=== PATIENT | female | born 1940 | race Caucasian/White ===

== ENCOUNTER → 2021-02-07 12:17 | Outpatient (BNVA) | payer MEDICARE, SELFPAY | PROVIDERS: Family Provider Family Medicine; PCP Family Medicine; Visit Provider Internal Medicine Cardiovascular Disease | DX: R06.02 Shortness of breath (principal); Z95.0 Presence of cardiac pacemaker; R07.9 Chest pain, unspecified; I50.33 Acute on chronic diastolic (congestive) heart failure; Z79.899 Other long term (current) drug therapy; N18.9 Chronic kidney disease, unspecified; M79.89 Other specified soft tissue disorders; I48.0 Paroxysmal atrial fibrillation; E78.2 Mixed hyperlipidemia | CPT/HCPCS: 80048; 83880; 84443 ==

== ENCOUNTER → 2021-12-22 12:18 | Outpatient (BNVA) | payer MEDICARE, SELFPAY | PROVIDERS: Family Provider Family Medicine; PCP Family Medicine; Visit Provider Internal Medicine Cardiovascular Disease | DX: I48.0 Paroxysmal atrial fibrillation (principal); Z95.0 Presence of cardiac pacemaker; I10 Essential (primary) hypertension; E78.5 Hyperlipidemia, unspecified; Z79.82 Long term (current) use of aspirin | CPT/HCPCS: 99213; 99214 ==

== ENCOUNTER → 2022-01-20 11:05 | Outpatient (BNVA) | payer MEDICARE, SELFPAY | PROVIDERS: Family Provider Family Medicine; PCP Family Medicine; Visit Provider Internal Medicine Cardiovascular Disease | DX: Z45.010 Encounter for checking and testing of cardiac pacemaker pulse generator [battery] (principal) | CPT/HCPCS: 93280 ==

== ENCOUNTER → 2022-06-22 10:24 | Outpatient (BNVA) | payer MEDICARE, SELFPAY | PROVIDERS: Family Provider Family Medicine; PCP Family Medicine; Visit Provider Internal Medicine Cardiovascular Disease | DX: I48.0 Paroxysmal atrial fibrillation (principal); Z79.899 Other long term (current) drug therapy; Z95.0 Presence of cardiac pacemaker; E78.2 Mixed hyperlipidemia; I10 Essential (primary) hypertension | CPT/HCPCS: 93005; 99214 ==

== ENCOUNTER → 2022-09-22 11:00 | Outpatient (BNVA) | payer MEDICARE, SELFPAY | PROVIDERS: Family Provider Family Medicine; PCP Family Medicine; Visit Provider Internal Medicine Cardiovascular Disease | DX: Z45.010 Encounter for checking and testing of cardiac pacemaker pulse generator [battery] (principal) | CPT/HCPCS: 93280 ==

== ENCOUNTER → 2023-01-04 10:09 | Outpatient (BNVA) | payer MEDICARE, SELFPAY | PROVIDERS: Family Provider Family Medicine; PCP Family Medicine; Visit Provider Internal Medicine Cardiovascular Disease | DX: I48.0 Paroxysmal atrial fibrillation (principal); Z79.899 Other long term (current) drug therapy; Z95.0 Presence of cardiac pacemaker; E78.2 Mixed hyperlipidemia; I10 Essential (primary) hypertension | CPT/HCPCS: 99214 ==

== ENCOUNTER → 2023-02-01 14:51 | Outpatient (BNVA) | payer MEDICARE, SELFPAY | PROVIDERS: Family Provider Family Medicine; PCP Family Medicine; Visit Provider Thoracic Surgery (Cardiothoracic Vascular Surgery) | DX: Z95.0 Presence of cardiac pacemaker (principal) | CPT/HCPCS: 99203 ==

== ENCOUNTER → 2023-03-08 09:17 | Outpatient (BNVA) | payer MEDICARE, SELFPAY | PROVIDERS: Family Provider Family Medicine; PCP Family Medicine; Visit Provider Thoracic Surgery (Cardiothoracic Vascular Surgery) | DX: Z95.0 Presence of cardiac pacemaker (principal) | CPT/HCPCS: 99213 ==

== ENCOUNTER 2023-03-13 07:13 | Day surgery (SDC) | payer MEDICARE, SELFPAY ==
--- NOTE | 2023-03-12 11:01 | ECG_ITS ---
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 Measurements Intervals [place] Rate: 61 P: 49 [place]: 207 QRS: -26 QRSD: 102 T: 44 QT: 442 QTc: 446 Interpretive Statements ELECTRONIC ATRIAL PACEMAKER BORDERLINE LEFT AXIS DEVIATION [QRS AXIS < -20] LOW QRS VOLTAGE IN PRECORDIAL LEADS [QRS DEFLECTION < 1.0 mV IN CHEST LEADS] PATTERN CONSISTENT WITH PULMONARY DISEASE No previous ECG available for comparison Electronically Signed On 03-12-2023 21:50:08 CDT by Shahana Jade M.D. [id number]
[2023-03-12 11:06] LABS: Basophils % 0.6 %; Eosinophils # 0.1 10^3/uL (0.0-0.8); Eosinophils % 1.1 %; Hematocrit 40.8 % (37.0-47.0); Hemoglobin 12.4 g/dL (11.5-15.3); Lymphocytes # 2.7 10^3/uL (0.8-4.8); Lymphocytes % 41.6 %; Mean Corpuscular HGB Conc 30.4 g/dL (30.0-36.0); Mean Corpuscular Hemoglobin 27.3 pg (28.0-34.0); Mean Corpuscular Volume 89.9 fl (81-99); Monocytes # 0.5 10^3/uL (0.2-0.9); Monocytes % 7.8 %; Neutrophils # 3.18 10^3/uL (1.8-7.7); Neutrophils % 48.4 %; Nucleated Red Blood Cells % 0 %; Platelet Count 334 10^3/cmm (130-400); Red Blood Count 4.54 10^6/uL (4.1-5.3); Red Cell Distribution Width 14.2 % (12.1-15.1); White Blood Count 6.6 10^3/uL (4.0-10.0)
[2023-03-12 11:15] LABS: Add Urine Microscopic? YES; Bilirubin Urine Neg (Negative); Blood Urine Neg (Negative); Glucose Urine UA Norm (Normal); Ketones Urine Negative (Negative); Leukocyte Esterase Urine Trace (Negative); Nitrate Urine Negative (Negative); Protein Urine Neg (Negative); Urine Appearance Clear (CLEAR); Urine Color Yellow (Yellow); Urobilinogen Urine Norm (Negative); pH Urine 6 (5-7)
[2023-03-12 11:16] LABS: Add Urine Culture? No; Bacteria Urine TRACE /hpf
[2023-03-12 11:23] LABS: Blood Urea Nitrogen 16 mg/dL (8-23); Calcium 9.4 mg/dL (8.5-10.5); Carbon Dioxide 26 mmol/L (22-29); Chloride 103 mmol/L (98-107); Glucose 112 mg/dL (65-115); Osmolality Calculated 294 mOsm/kg (285-295); Sodium 141 mmol/L (136-145)
--- NOTE | 2023-03-12 11:33 | P.ANESASSM_ITS ---
Pre-Anesthetic Assessment Height/Weight: Height 1.57 m Operation Date: 03/13/23 09:10 Proposed Procedures p pacemaker gen change possible lead revisio [id number],I48.0(Not Applicable) - Valentin Love MD Familial anesthetic complications: none Was Beta Aston taken within 24 hours: N/A Was Clonidine taken within 24 hours: N/A Social No alcohol and No tobacco Exam alert, oriented x 3, clear to auscultation bilaterally and regular rate & rhythm Airway Submandibular: within normal limits Cervical ROM: within normal limits Mallampati: Class II Dentition: full CV/HEM Atrial Fibrillation, Arrythmia and Hypertension Pacemaker GI Gastroesophageal Reflux Disease Metabolic Diabetes Mellitus and Hyperlipidemia Anesthetic Plan ASA status: 3 Anesthesia: MAC Medications/Allergies Home Medications Medication Instructions Recorded Confirmed Last Taken Type esomeprazole magnesium 20 mg 20 mg PO DAILY 02/05/20 03/12/23 03/11/23 History capsule,delayed release (Nexium) ezetimibe 10 mg tablet 10 mg PO DAILY 02/05/20 03/12/23 03/11/23 History sotalol 80 mg tablet 80 mg PO BID 02/05/20 03/12/23 03/11/23 History furosemide 20 mg tablet (Lasix) 20 mg PO DAILY PRN edema 30 days 02/07/21 03/12/23 Unknown Rx #30 tabs aspirin 81 mg tablet,delayed 81 mg PO Q2D 06/22/21 03/12/23 Unknown History release (Adult Low Dose Aspirin) amlodipine 5 mg tablet 5 mg PO DAILY #90 tabs 04/03/22 03/12/23 03/11/23 Rx losartan 25 mg tablet 50 mg PO DAILY #180 tabs 01/31/23 03/12/23 03/11/23 Rx potassium chloride 8 mEq 8 meq PO DAILY PRN Edema 02/01/23 03/12/23 Unknown History tablet,extended release Allergies Allergy/AdvReac Type Severity Reaction Status Date / Time iodine Allergy Unknown unknown Verified 03/08/23 09:26 [facility] Anesthesia Medical History Atrial fibrillation Patient he is known to have easy bruising. So she is not on any long-term oral anticoagulation Diabetes Diverticulitis High risk medication use Hyperlipidemia Hypertension Pacemaker Surgical History H/O: hysterectomy History of back surgery Family History Mother Cancer Diabetes Family/Other Chronic kidney disease (CKD) Daughter Dementia Denies family history of CAD (coronary artery disease) Clotting disorder Suicide Anesthesia complication Bleeding disorder Lung disease Stroke Social History Smoking and tobacco status: never smoked Alcohol intake: never Substance/Drug Use: never Data Anesthesia 03/12/23 10:48 03/12/23 10:48 Short CBC 03/12/23 Range/Units 10:48 WBC 6.6 (4.0-10.0) 10^3/uL Hgb 12.4 (11.5-15.3) g/dL Hct 40.8 (37.0-47.0) % MCV 89.9 (81-99) fl Plt Count 334 (130-400) 10^3/cmm Neut % (Auto) 48.4 % Neut # (Auto) 3.18 (1.8-7.7) 10^3/uL BMP 03/12/23 10:48 Sodium 141 Potassium 4.0 Chloride 103 Carbon Dioxide 26 BUN 16 Creatinine 1.0 H Glucose 112 Calcium 9.4 Urine 03/12/23 Range/Units 10:32 Urine Color Yellow (Yellow) Urine Appearance Clear (CLEAR) Urine pH 6 (5-7) Ur Specific [place] 1.010 (1.005-1.030) Urine Protein Neg (Negative) Urine Glucose (UA) Norm (Normal) Urine Ketones Negative (Negative) Urine Nitrate Negative (Negative) Urine Bilirubin Neg (Negative) Ur Leukocyte Esterase Trace H (Negative) Urine RBC None (0-2) /hpf Urine WBC 5-10 H (0-5) /hpf Cardiac Studies: No Data to Display
[2023-03-13] VITALS (8 sets, daily range): BP systolic 108–167; BP diastolic 52–89; PULSE 60–69; RESP 10–18; TEMP 36.4–36.6; O2SAT 91–100; BMI 23.8
[2023-03-13] MEDS: sodium chloride 0.9% 1,000 ML 30 ML IV (07:41)
--- NOTE | 2023-03-13 08:34 | P.ANESUD_ITS ---
Pre-Anesthetic Update Pre-Anesthetic Assessment: Date of Surgery/Procedure: 03/13/23 Preop Alana gnosis: Pacemaker generator end of service Proposed Procedure: Operation Date: 03/13/23 09:10 Proposed Procedures p pacemaker gen change possible lead revisio [id number],I48.0(Not Applicable) - Valentin Love MD Any changes to Pre-Anesthetic Assessment?: No Last Intake: Intake Last Liquid Date 03/12/23 Last Liquid Time 23:00 Last Solid Date 03/12/23 Last Solid Time 22:00 Labs Last 48hrs: Short CBC 03/12/23 Range/Units 10:48 WBC 6.6 (4.0-10.0) 10^3/ uL Hgb 12.4 (11.5-15.3) g/dL Hct 40.8 (37.0-47.0) % MCV 89.9 (81-99) fl Plt Count 334 (130-400) 10^3/c mm Neut % (Auto) 48.4 % Neut # (Auto) 3.18 (1.8-7.7) 10^3/u L BMP 03/12/23 10:48 Sodium 141 Potassium 4.0 Chloride 103 Carbon Dioxide 26 BUN 16 Creatinine 1.0 H Glucose 112 Calcium 9.4 Urine 03/12/23 Range/Units 10:32 Urine Color Yellow (Yellow) Urine Appearance Clear (CLEAR) Urine pH 6 (5-7) Ur Specific Gravit y 1.010 (1.005-1.030) Urine Protein Neg (Negative) Urine Glucose (UA) Norm (Normal) Urine Ketones Negative (Negative) Urine Nitrate Negative (Negative) Urine Bilirubin Neg (Negative) Ur Leukocyte Violetta ase Trace H (Negative) Urine RBC None (0-2) /hpf Urine WBC 5-10 H (0-5) /hpf Vitals: Temperature 97.5 F L 03/13/23 07:28 Temperature Source Temporal Artery S can 03/13/23 07:28 Pulse Rate 61 03/13/23 07:28 Respiratory Rate 16 03/13/23 07:28 Blood Pressure 167/83 03/13/23 07:28 Blood Pressure Thalia n 111 03/13/23 07:28 Pulse Oximetry 97 03/13/23 07:28 Oxygen Delivery Me thod Room Air 03/13/23 07:30 Exam: Pre-Anes Outpt Exam: alert, oriented x 3 and clear to auscultation bila terally Cardiac Studies: No Data to Display
--- NOTE | 2023-03-13 08:38 | W.PM.OPSUD ---
Surgery/Procedure H&P Update DATE OF PROCEDURE: March 13, 2023 DATE H&P PERFORMED: 03/08/23 H&P UPDATE INFORMATION: I have reviewed H&P completed within last 30 days, I have examined patient prior to procedure and No changes to prior documentation PREOP DIAGNOSIS: Pacemaker generator end of service PLANNED PROCEDURE: Operation Date: 03/13/23 09:10 Proposed Procedures p pacemaker gen change possible lead revisio [id number],I48.0(Not Applicable) - Valentin Love MD
[2023-03-13] MEDS: ceFAZolin 2,000 MG in sodium chloride 0.9% (plus) 50 ML 100 MG IV (09:02)
[2023-03-13] MEDS: ceFAZolin 1,000 mg SDV 1000 MG IRRIGATION (09:25)
[2023-03-13] MEDS: lidocaine 2% INJ 20 mL INJECTION (09:25)
--- NOTE | 2023-03-13 10:12 | P.OP_ITS ---
Operative Report Date of procedure: March 13, 2023 Pre-op diagnosis: Preop Diagnosis Pacemaker generator end of service Post-op diagnosis: same Procedure done: Pacemaker generator exchange Implants: Medtronic pacing generator Specimens removed/disposition: [employer] generator Pathology: none sent Surgeon: Valentin Love Anesthesia: MAC and Local Estimated blood loss (mL): 5 Complications: None Condition: stable Disposition: same day Brief History: Ms. Montgomery is a very pleasant 83-year-old female with current dual-lead pacemaker at end of service. Patient generator replacement has been recommended by our cardiology colleagues. Details of risk of the procedure were carefully and frankly discussed. Appropriate consents have been reviewed and signed. Procedure: Ms. Montgomery was appropriately positioned and sterilely prepped and draped. Appropriate timeout was completed and confirmed. Ms. Montgomery IV consicious sedation was given with anesthesia monitoring. 1% lidocaine was infiltrated through the prior insertion incision site. # 15 scalpel blade was used to incise the skin down to subcutaneous layer. Subsequently, using sharp and blunt dissection the pseudocapsule to the old generator was reached and opened with a scalpel blade. This area was then enhanced utilizing Metzenbaum scissors with care taken not to injure the pacing leads. Once the pocket was adequate opened, hemostats were utilized to deliver the old generator. Set screws were released and the leads were removed and inserted properly into the new generator with set screws then secured. The old generator was removed from the field. The incision was irrigated with antibiotic solution. Hemostasis was confirmed. The new generator was placed back into the old subcutaneous pocket. The wound was then closed in 2 layers of 3-0 Vicryl suture. Skin was closed in a subcuticular manner with 4-0 undyed Vicryl suture. A 2 layer pressure dressing was then applied. The entire system was interrogated and appropriate parameters obtained. Ms. Montgomery tolerated procedure well and was taken to the recovery room in stable condition. I did vocational rehabilitation counselor with the family at the completion of the procedure. Medtronic generator model # [id number] serial # [id number] Right atrial lead had an amplitude of 1.5 mV with an impedance of 361 ohms and a capture threshold of 0.5 V. Biventricular lead had an amplitude of 7.9 mV with an impedance of 437 ohms and a capture threshold of 0.75 V. Pacing mode: AAIR/DDDR Lower rate equals 60 Upper rate equals 130
--- NOTE | 2023-03-13 13:41 | ANE.PACU2 ---
Inpatient post-anesthesia follow up: Airway intact: Yes Vital signs: Temperature 97.8 F Pulse Rate 61 Respiratory Rate 18 Blood Pressure 151/89 Pulse Oximetry 94 Oxygen Delivery Me thod Room Air Oxygen Flow Rate 6 Fraction of Inspir ed Oxygen Hydration adequate: Yes Nausea and vomiting: No Pain level: 2 Mental status: Baseline
== END 2023-03-13 11:25 | disposition home or self-care (01) ==
PROVIDERS: PCP Family Medicine; Visit Provider Thoracic Surgery (Cardiothoracic Vascular Surgery)
PROC: 0JPT0PZ Removal of Cardiac Rhythm Related Device from Trunk Subcutaneous Tissue and Fascia, Open Approach (ICD-10-PCS; CPT 33228; principal; 2023-03-13 09:00)
DX: I10 Essential (primary) hypertension; K21.9 Gastro-esophageal reflux disease without esophagitis; E11.9 Type 2 diabetes mellitus without complications; E78.5 Hyperlipidemia, unspecified; Z79.82 Long term (current) use of aspirin; I48.91 Unspecified atrial fibrillation
CPT/HCPCS: 33228; 36415; 80048; 81001; 85025; 93005; C1786; J0690; J2704; J3010; J3490; J7030

== ENCOUNTER → 2023-03-19 10:17 | Outpatient (BNVA) | payer MEDICARE, SELFPAY | PROVIDERS: PCP Family Medicine; Visit Provider Nurse Practitioner Family | DX: Z95.0 Presence of cardiac pacemaker (principal) | CPT/HCPCS: 93288; 99213 ==

== ENCOUNTER 2023-09-07 10:04 | Emergency (ER) | payer MEDICARE, SELFPAY ==
--- NOTE | 2023-09-07 10:05 | ECG_ITS ---
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 Measurements Intervals [place] Rate: 72 P: 68 [place]: 207 QRS: -55 QRSD: 99 T: 14 QT: 405 QTc: 446 Interpretive Statements ELECTRONIC ATRIAL PACEMAKER LOW QRS VOLTAGE IN PRECORDIAL LEADS [QRS DEFLECTION < 1.0 mV IN CHEST LEADS] LEFT ANTERIOR FASCICULAR BLOCK [QRS AXIS <= -45, QR IN I, RS IN II] POSSIBLE ANTERIOR MYOCARDIAL INFARCTION , PROBABLY OLD [30 ms Q WAVE IN V3/V4, OR R < 0.2 mV IN V4] Compared to ECG 03/12/2023 11:01:19 Left anterior fascicular block now present Myocardial infarct finding now present Electronically Signed On 09-07-2023 13:43:53 ANALYTICS CONSULTANT by Shahana Jade M.D. [id number]
--- NOTE | 2023-09-07 10:05 | XRR_ITS ---
PROCEDURE INFORMATION: Exam: XR Chest Exam date and time: 09/07/2023 10:36 AM Age: 83 years old Clinical indication: Pain; Angina pectoris; Prior surgery; Surgery date: 6+ months; Surgery type: Pacemaker; Additional info: Cp TECHNIQUE: Imaging protocol: Radiologic exam of the chest. Views: 1 view. COMPARISON: No relevant prior studies available. FINDINGS: Lungs: No consolidation. Tiny scattered dense nodular opacities favored calcified granulomas. Pleural spaces: No pleural effusion. No pneumothorax. Heart/Mediastinum: No cardiomegaly. Left chest cardiac device. Bones/joints: No acute findings. XR/XR chest 1V portable [id number] IMPRESSION: No acute chest findings.
[2023-09-07 10:14] VITALS: BP 146/83; PULSE 81; RESP 14; TEMP 36.6; O2SAT 96
--- NOTE | 2023-09-07 10:46 | ED_ITS ---
HPI - Chest Pain 2 General: Chief Complaint: Chest Pain Stated Complaint: chest pain Time Seen by Provider: 09/07/23 10:33 Source: patient Mode of arrival: ambulatory Limitations: no limitations History of Present Illness: 83-year-old female who states that she h ad some reflux 2 days ago and had an episode of vomiting states last night she had reflux pain again and then this morning started having some discomfort in the center of her chest. States her pain today was more of a dull aching pain she denies any shortness of breath she does take Nexium for reflux. She had no vomiting today no cough or fever. Associated symptoms: Reports abdominal pain, nausea and vomiting; Deny dyspnea or fever(s) Review of Systems 2 Const: Denies: fever(s), chills, body aches or change in appetite ENMT: Denies: throat pain or dental pain Card: Reports: chest pain Resp: Denies: dyspnea GI: Reports: abdominal pain, nausea and vomiting Musc: Denies: neck pain or back pain Skin/Breast: Denies: rash Neuro: Denies: headache(s) PFSH ED 2 PFSH: Medical History High risk medication use Pacemaker Atrial fibrillation Patient he is known to have easy bruising. So she is not on any long-term oral anticoagulation Hyperlipidemia Hypertension Diverticulitis Diabetes Surgical History H/O: hysterectomy History of back surgery Family History Mother Cancer Diabetes Family/Other Chronic kidney disease (CKD) Daughter Dementia Denies family history of CAD (coronary artery disease) Clotting disorder Suicide Anesthesia complication Bleeding disorder Lung disease Stroke Social History Smoking and tobacco/nicotine status: never used tobacco/nicotine Alcohol intake: never Substance/Drug Use: never Physical Exam 2 Const: COMMON NORMALS: no acute distress, patient oriented x3 and healthy appearing HENMT: COMMON NORMALS: normocephalic and atraumatic HEAD & SCALP: n ormocephalic and atraumatic Eye: COMMON NORMALS: Equal, round and reactive pupils present and EOMs intact bilaterally PUPIL: Yes Equal, round and reactive pupils present Neck/C-Spine: COMMON NORMALS: full ROM and supple Chest: COMMONS NORMALS: normal inspection of the chest and normal palpation of entire chest wall Resp: COMMON NORMALS: normal respiratory effort, No retractions, No use of accessory muscles and clear to auscultation bilaterally AUSCULTATION: clear to auscultation bilaterally Cardio: COMMON NORMALS: regular rate, regular rhythm and No murmurs present (Cardio) RATE: regular rate RHYTHM: regular rhythm GI: COMMON NORMALS: Normal to inspection, nondistended, normoactive bowel sounds present, Soft to palpation, non-tender and no masses PALPATION: Yes Soft to palpation Extremity: COMMON NORMALS: normal to inspection and full ROM Neuro: COMMON NORMALS: patient oriented x3, moves all extremities and no focal motor deficits Psych: COMMON NORMALS: mental status grossly normal, Normal thought process present and cooperative THOUGHT PROCESS: Normal thought process present Skin: COMMON NORMALS: no rashes or lesions noted and no wounds GENERAL SKIN EXAM: no rashes or lesions noted Course 2 Vital Signs: Vital signs: Vital Signs Temperature 97.8 F 09/07/23 10:14 Pulse Rate 63 09/07/23 12:00 Respiratory Rate 14 09/07/23 10:14 Blood Pressure 155/72 09/07/23 12:00 Pulse Oximetry 92 09/07/23 12:00 Oxygen Delivery Me thod Room Air 09/07/23 12:00 MDM - Chest Pain Medical Decision Making Patient presents here with chest pain is atypical in nature is likely from her reflux her troponins EKG x-ray here are all normal blood works normal she has no abdominal tenderness no signs of cholecystitis she is to follow-up with her PCP and return if worsening. Medical Records I reviewed the patient's medical records. Lab Data 09/07/23 10:56 09/07/23 10:56 Radiology Impressions Chest X-Ray 09/07/23 10:05 IMPRESSION: No acute chest findings. Laboratory Results WBC 6.41 10^3/uL (3.29-11.43) 09/07/23 10:56 RBC 4.44 10^6/uL (3.85-5.65) 09/07/23 10:56 Hgb 12.80 g/dL (11.27-16.99) 09/07/23 10:56 Hct 40.3 % (36-47) 09/07/23 10:56 MCV 90.8 fl (85-98) 09/07/23 10:56 MCH 28.8 pg (27-33) 09/07/23 10:56 MCHC 31.8 g/dL (30-55) 09/07/23 10:56 RDW 13.9 % (12.1-15.1) 09/07/23 10:56 Plt Count 245 10^3/cmm (157-399) 09/07/23 10:56 MPV 9.3 fL (7.4-10.4) 09/07/23 10:56 Neut % (Auto) 51.2 % 09/07/23 10:56 Lymph % (Auto) 38.4 % 09/07/23 10:56 [place] % (Auto) 7.5 % 09/07/23 10:56 Eos % (Auto) 2.0 % 09/07/23 10:56 Baso % (Auto) 0.6 % 09/07/23 10:56 Neut # (Auto) 3.28 10^3/uL (1.8-7.7) 09/07/23 10:56 Lymph # (Auto) 2.5 10^3/uL (0.8-4.8) 09/07/23 10:56 [place] # (Auto) 0.5 10^3/uL (0.2-0.9) 09/07/23 10:56 Eos # (Auto) 0.1 10^3/uL (0.0-0.8) 09/07/23 10:56 Baso # (Auto) 0.0 10^3/uL (0.0-0.1) 09/07/23 10:56 Nucleated RBC % (auto) 0 % 09/07/23 10:56 Nucleated RBCs # 0.0 /100WBC 09/07/23 10:56 Sodium 141 mmol/L (136-145) 09/07/23 10:56 Potassium 4.4 mmol/L (3.5-5.1) 09/07/23 10:56 Chloride 105 mmol/L (98-107) 09/07/23 10:56 Carbon Dioxide 25 mmol/L (22-29) 09/07/23 10:56 Anion Gap 15.4 (5-19) 09/07/23 10:56 BUN 18 mg/dL (8-23) 09/07/23 10:56 Creatinine 1.0 mg/dL (0.5-0.9) H 09/07/23 10:56 GFR Calculation Not Reportable 09/07/23 10:56 Glucose 145 mg/dL (65-115) H 09/07/23 10:56 Calculated Osmolality 296 mOsm/kg (285-295) H 09/07/23 10:56 Calcium 9.7 mg/dL (8.5-10.5) 09/07/23 10:56 Total Bilirubin 0.4 mg/dL (0.15-1.2) 09/07/23 10:56 AST 16 U/L (0-32) 09/07/23 10:56 ALT 9 U/L (0-33) 09/07/23 10:56 Alkaline Phosphatase 74 U/L (35-105) 09/07/23 10:56 Troponin T Baseline 9 ng/L (0-10) 09/07/23 10:56 Troponin T 120 Minute 8.41 ng/L (0-10) 09/07/23 12:47 Delta Troponin T -0.59 ABS# (0-10) L 09/07/23 12:47 Total Protein 6.6 g/dL (6.6-8.7) 09/07/23 10:56 Albumin 3.9 g/dL (3.5-5.2) 09/07/23 10:56 Globulin 2.7 g/dL (1.3-4.6) 09/07/23 10:56 Lipase 18 U/L (13-60) 09/07/23 10:56 All radiology interpretation(s) finalized by discharge EKG Data EKG 1: I personally reviewed and interpreted this EKG as follows: EKG interpretation date: 09/07/23 EKG interpretation time: 10:13 Interpretation: paced hr [address] or t wave abnormalities qrs 99 qtc 430 Discharge Plan Discharge Patient Disposition: Home Clinical Impression: Chest pain Condition: Stable Prescriptions: No Action ezetimibe 10 mg tablet 10 mg PO QPM sotalol 80 mg tablet 80 mg PO BID aspirin [Adult Low Dose Aspirin] 81 mg tablet,delayed release (DR/EC) 81 mg PO Q2D PRN (Reason: unknown) losartan 25 mg tablet 50 mg PO DAILY Qty: 180 0RF fluticasone propionate 50 mcg/actuation spray,suspension 1 spray INTRANASAL DAILY PRN (Reason: allergies) amlodipine 5 mg tablet 5 mg PO QPM Discharge Orders: Discharge ED (Routine); Ordered 09/07/23 Ordered By: Edilia Rosenthal Referrals: Blu Moore [Primary Care Provider] - 1-3 days Discharge Diet: Advance as tolerated Discharge Activity: Resume usual activity Patient Instructions: Chest Pain (ED) Coding Level of Care Code ED 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
[2023-09-07 11:00] VITALS: BP 154/71; PULSE 61; O2SAT 96
[2023-09-07] MEDS: lidocaine 2% viscous 15 ML, aluminum-mag hydrox-simethicon 30 ML, sucralfate oral liq 1 GM PO (11:11)
[2023-09-07 11:13] LABS: Basophils % 0.6 %; Eosinophils # 0.1 10^3/uL (0.0-0.8); Hematocrit 40.3 % (36-47); Lymphocytes # 2.5 10^3/uL (0.8-4.8); Lymphocytes % 38.4 %; Mean Corpuscular HGB Conc 31.8 g/dL (30-55); Mean Corpuscular Hemoglobin 28.8 pg (27-33); Mean Corpuscular Volume 90.8 fl (85-98); Mean Platelet Volume 9.3 fL (7.4-10.4); Monocytes # 0.5 10^3/uL (0.2-0.9); Monocytes % 7.5 %; Neutrophils # 3.28 10^3/uL (1.8-7.7); Neutrophils % 51.2 %; Nucleated Red Blood Cells % 0 %; Platelet Count 245 10^3/cmm (157-399); Red Blood Count 4.44 10^6/uL (3.85-5.65); Red Cell Distribution Width 13.9 % (12.1-15.1); White Blood Count 6.41 10^3/uL (3.29-11.43)
[2023-09-07 11:30] VITALS: BP 140/72; PULSE 60; O2SAT 95
[2023-09-07 11:33] LABS: Alanine Aminotransferase 9 U/L (0-33); Albumin Level 3.9 g/dL (3.5-5.2); Alkaline Phosphatase 74 U/L (35-105); Anion Gap 15.4 (5-19); Aspartate Amino Transferase 16 U/L (0-32); Blood Urea Nitrogen 18 mg/dL (8-23); Calcium 9.7 mg/dL (8.5-10.5); Carbon Dioxide 25 mmol/L (22-29); Chloride 105 mmol/L (98-107); Globulin 2.7 g/dL (1.3-4.6); Glucose 145 mg/dL (65-115); Lipase 18 U/L (13-60); Osmolality Calculated 296 mOsm/kg (285-295); Potassium 4.4 mmol/L (3.5-5.1); Sodium 141 mmol/L (136-145); Total Bilirubin 0.4 mg/dL (0.15-1.2); Total Protein 6.6 g/dL (6.6-8.7)
[2023-09-07 11:34] LABS: Troponin(5th) Baseline 9 ng/L (0-10)
[2023-09-07 11:37] LABS: Creatinine Clr Calc Pharmacy 34.8332
[2023-09-07 12:00] VITALS: BP 155/72; PULSE 63; O2SAT 92
--- NOTE | 2023-09-07 12:10 | ECG_ITS ---
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 Measurements Intervals [place] Rate: 61 P: 25 [place]: 215 QRS: -47 QRSD: 88 T: 31 QT: 444 QTc: 450 Interpretive Statements ELECTRONIC ATRIAL PACEMAKER LOW QRS VOLTAGE IN PRECORDIAL LEADS [QRS DEFLECTION < 1.0 mV IN CHEST LEADS] LEFT ANTERIOR FASCICULAR BLOCK [QRS AXIS <= -45, QR IN I, RS IN II] Compared to ECG 09/07/2023 10:13:03 Myocardial infarct finding no longer present Electronically Signed On 09-07-2023 13:49:45 PULLER THROUGH by Shahana Jade M.D. [id number]
[2023-09-07 13:21] LABS: Troponin 5 2HR 8.41 ng/L (0-10)
[2023-09-07 13:22] LABS: Troponin 5 2HR Delta -0.59 ABS# (0-10)
[2023-09-07 13:54] VITALS: BP 153/77; PULSE 65; O2SAT 94
== END 2023-09-07 13:47 | disposition home or self-care (01) ==
PROVIDERS: Emergency Provider Emergency Medicine; PCP Family Medicine
DX: R07.9 Chest pain, unspecified (principal); Z95.0 Presence of cardiac pacemaker; E78.5 Hyperlipidemia, unspecified; I10 Essential (primary) hypertension; E11.9 Type 2 diabetes mellitus without complications
CPT/HCPCS: 36415; 71045; 80053; 83690; 84484; 85025; 93005; 99285

== ENCOUNTER → 2023-11-28 09:48 | Outpatient (BNVA) | payer MEDICARE, SELFPAY | PROVIDERS: PCP Family Medicine; Visit Provider Internal Medicine Cardiovascular Disease | DX: I10 Essential (primary) hypertension (principal); E78.2 Mixed hyperlipidemia; I48.0 Paroxysmal atrial fibrillation; Z95.0 Presence of cardiac pacemaker; Z79.899 Other long term (current) drug therapy | CPT/HCPCS: 99214 ==